=== PATIENT | male | born 1965 | race Caucasian/White ===

== ENCOUNTER 2017-06-09 18:19 | Emergency (ER) | payer OTHER ==
[~2017-06-09] VITALS: Ht 182.9 cm; Wt 117.5 kg
[~2017-06-09 18:19] MED LIST: AMLODIPINE BESY10 MG PO; ASPIRIN325 MG PO; BISOPROLOL-HCT1 EAC2 PO; HYDROCODON-ACE1 EA10 PO; LANTUS100 UNITS/ SUB-Q; LISINOPRIL40 MG PO; MOBIC15 MG PO; PRAVASTATIN SOD40 MG PO; SILDENAFIL20 MG PO; TYLENOL325 MG PO
[2017-06-09] MEDS ORDERED: ZITHROMAX250 MG PO (19:48)
== END 2017-06-09 20:16 | disposition home or self-care (01) ==
LOC: ED 18:19
DX: J02.0 Streptococcal pharyngitis (principal); I10 Essential (primary) hypertension; E11.9 Type 2 diabetes mellitus without complications; Z87.442 Personal history of urinary calculi; Z88.0 Allergy status to penicillin; Z79.899 Other long term (current) drug therapy; Z79.4 Long term (current) use of insulin
CPT/HCPCS: 99283

== ENCOUNTER 2017-06-19 06:55 | Day surgery (SDC) | payer OTHER ==
[~2017-06-19] VITALS: Ht 182.9 cm; Wt 117.5 kg
[~2017-06-19 06:55] MED LIST changes: +ZITHROMAX250 MG PO
[2017-06-19] MEDS ORDERED: NORCO 5-325 TA1 EACH PO (11:03)
--- NOTE | 2017-06-24 07:12 | OR ---
[facility] [address] [place] [place] [address] Signed DATE OF PROCEDURE: 06/19/17 PREOPERATIVE DIAGNOSIS: De Quervain's disease, right wrist. POSTOPERATIVE DIAGNOSIS: De Quervain's disease, right wrist. PROCEDURE: Release of 1st dorsal compartment. ANESTHESIA: General. There were no specimens or complications. TOURNIQUET TIME: About 30 minutes. DESCRIPTION OF PROCEDURE The patient was taken to the operating room. After anesthesia was induced and the airway secured, the patient was positioned, prepped and draped in a routine sterile fashion. A small transverse incision was made at the radial styloid about 2 cm proximal to the palpable tip of the styloid. Skin was divided sharply. Subcutaneous tissue was bluntly spread to avoid damage to dorsal cutaneous branches of the radial nerve. The first dorsal compartment was identified and gently released with the tip of a 15 blade. We were able to elevate both the abductors and the extensor tendons and there was an additional 3rd tendon going t h rough the same jean. At this point, we appeared to have a complete and adequate decompression of the first dorsal compartment. The wound was gently irrigated. The wound edges were infiltrated with 0.25% Marcaine with 1:200,000 Epinephrine. Routine wound closure was accomplished and a sterile dressing applied. The patient was awakened to the recovery room, where he arrived in stable condition. Counts were correct and antibiotic protocols were followed. MD PAUL Xiong/Geo /[id number] cc: Luis Spivey MD Electronically Signed By: SWAPNIL WILEY MD 06/24/17 0712 PATIENT NAME: EMILY DOSHI OPERATIVE REPORT DATE OF : 61 PHYSICIAN: SWAPNIL WILEY MD REPORT #: [id number] REPORT IS CONFIDENTIAL AND NOT TO BE RELEASED WITHOUT AUTHORIZATION
== END 2017-06-19 11:55 | disposition home or self-care (01) ==
LOC: OPS 06:55 → DS 06:55 → OPS 08:15
PROVIDERS: Orthopaedic Surgery
PROC: 0LN50ZZ Release Right Lower Arm and Wrist Tendon, Open Approach (ICD-10-PCS; principal; 2017-06-19 08:15)
DX: M65.4 Radial styloid tenosynovitis [de Quervain] (principal); E11.9 Type 2 diabetes mellitus without complications; I10 Essential (primary) hypertension; J45.909 Unspecified asthma, uncomplicated; Z88.0 Allergy status to penicillin
CPT/HCPCS: 01810; J1100; J1885; J2250; J2405; J2704; J2765; J2795; J3010; J7120

== ENCOUNTER 2017-07-13 09:46 | Emergency (ER) | payer OTHER ==
[~2017-07-13] VITALS: Ht 182.9 cm; Wt 117.5 kg
[~2017-07-13 09:46] MED LIST changes: +NORCO 5-325 TA1 EACH PO
[2017-07-13] MEDS ORDERED: KEFLEX500 MG PO (10:14)
== END 2017-07-13 11:31 | disposition home or self-care (01) ==
LOC: ED 09:46
PROC: 0H9DXZZ Drainage of Right Lower Arm Skin, External Approach (ICD-10-PCS; principal; 2017-07-13)
DX: T81.4XXA Infection following a procedure, initial encounter (principal); L02.413 Cutaneous abscess of right upper limb; E11.9 Type 2 diabetes mellitus without complications; Z88.0 Allergy status to penicillin; Z79.4 Long term (current) use of insulin; Z79.899 Other long term (current) drug therapy; Z87.442 Personal history of urinary calculi; I10 Essential (primary) hypertension
CPT/HCPCS: 10060; 99283

== ENCOUNTER 2018-12-14 03:05 | Emergency (ER) | payer OTHER ==
[~2018-12-14] VITALS: Ht 182.9 cm; Wt 117.5 kg
--- OUTSIDE RECORDS SUMMARY | ~2018-12-14 | XMS | Clinical Summary ---
Demographics + + + | Address | [address] | | | [place] [address] | + + + | Home Phone | | + + + | Preferred Language | Unknown | + + + | Marital Status | | + + + | Druze Affiliation | Unknown | + + + | Race | Unknown | + + + | Ethnic Group | Unknown | + + + Author + + + | Author | [facility] | + + + | Organization | [facility] [employer] [facility] | + + + | Address | Unknown | + + + | Phone | Unavailable | + + + Support + + +---------+ + | Name | Relationship | Address | Phone | + + +---------+ + | Marlon Painter | ECON | Unknown | | + + +---------+ + | Batsheva Doshi | ECON | Unknown | | + + +---------+ + Care Team Providers + +------+ + | Care Saw Grinder Name | Role | Phone | + +------+ + | Ashleigh Diaz PA-C | PP | | + +------+ + Allergies + + + + + + | Active Allergy | Reactions | Severity | Noted | Comments | | | | | Date | | + + + + + + | Ciprofloxacin | Other (See Comments) | Medium | 07/07/20 | Festered and | | | | | 16 | looked like a boil | + + + + + + | Penicillins | Hives | High | 07/07/20 | | | | | | 18 | | + + + + + + Current Medications + + +--------+---------+------+------+-------+ | Prescription | Sig. | Disp. | Refills | Star | End | Statu | | | | | | t | Date | s | | | | | | Date | | | + + +--------+---------+------+------+-------+ | amLODIPine | Take 10 mg by mouth | | | | | Activ | | (NORVASC) 10 MG | daily. | | | | | e | | tablet | | | | | | | + + +--------+---------+------+------+-------+ | insulin lispro, | Inject 10 Units into | | | | | Activ | | human, (HUMALOG) 100 | the skin 3 (three) | | | | | e | | UNIT/ML injection | times daily before | | | | | | | | meals. | | | | | | + + +--------+---------+------+------+-------+ | insulin glargine | Inject into the | | | | | Activ | | (LANTUS) 100 UNIT/ML | skin nightly. | | | | | e | | injection | | | | | | | + + +--------+---------+------+------+-------+ | lisinopril | Take 40 mg by mouth | | | | | Activ | | (ZESTRIL) 40 MG | daily. | | | | | e | | tablet | | | | | | | + + +--------+---------+------+------+-------+ | sildenafil | Take 20 mg by mouth | | | | | Activ | | (REVATIO) 20 MG | 3 (three) times | | | | | e | | tablet | daily. | | | | | | + + +--------+---------+------+------+-------+ | testosterone | Inject 100 mg into | | | | | Activ | | cypionate | the muscle every 14 | | | | | e | | (DEPO-TESTOSTERONE) | (fourteen) days. | | | | | | | 200 MG/ML injection | | | | | | | + + +--------+---------+------+------+-------+ | aspirin 81 MG | Take 1 tablet by | 30 | 11 | 11/0 | 11/0 | Activ | | tablet | mouth daily. | tablet | | 9/20 | 9/20 | e | | | | | | 18 | 19 | | + + +--------+---------+------+------+-------+ | carvedilol (COREG) | Take 1 tablet by | 60 | 11 | 12/0 | 12/0 | Activ | | 12.5 MG tablet | mouth 2 (two) times | tablet | | /20 | 3/20 | e | | | daily with meals. | | | 18 | 19 | | + + +--------+---------+------+------+-------+ | chlorthalidone | Take 1 tablet by | 30 | 11 | 12/0 | 12/0 | Activ | | (HYGROTEN) 25 MG | mouth daily. | tablet | | 3/20 | 3/20 | e | | tablet | | | | 18 | 19 | | + + +--------+---------+------+------+-------+ | atorvastatin | Take 1 tablet by | 30 | 11 | 12/0 | 12/0 | Activ | | (LIPITOR) 80 MG | mouth daily. | tablet | | 3/20 | 3/20 | e | | tablet | | | | 18 | 19 | | + + +--------+---------+------+------+-------+ Active Problems Not on file Family History + + +------+ + | Medical History | Relation | Name | Comments | + + +------+ + | Diabetes type II | Father | | | + + +------+ + | Heart attack | Father | | | + + +------+ + | Hypertension | Father | | | + + +------+ + | Depression | Mother | | | + + +------+ + | Diabetes type II | Mother | | | + + +------+ + | Hypertension | Mother | | | + + +------+ + + +------+ + + | Relation | Name | Status | Comments | + +------+ + + | Father | | | | + +------+ + + | Mother | | | | + +------+ + + Social History + +-------+ +--------+------+ | Tobacco Use | Types | Packs/Day | Years | Date | | | | | Used | | + +-------+ +--------+------+ | Never Smoker | | | | | + +-------+ +--------+------+ + +---+---+---+ | Smokeless Tobacco: | | | | | Current User | | | | + +---+---+---+ + + +---------+ + | Alcohol Use | Drinks/We | oz/Week | Comments | | | ek | | | + + +---------+ + | Yes | | | Once a month | + + +---------+ + + + + | Sex Assigned at | Date Recorded | | | | + + + | Not on file | | + + + Last Filed Vital Signs + + + + | Vital Sign | Reading | Time Taken | + + + + | Blood Pressure | 153/82 | 08/03/2018 11:30 AM PST | + + + + | Pulse | 58 | 08/03/2018 11:30 AM PST | + + + + | Temperature | 36.7 C (98.1 F) | 08/03/2018 11:45 AM PST | + + + + | Respiratory Rate | 9 | 08/03/2018 11:30 AM PST | + + + + | Oxygen Saturation | 94% | 08/03/2018 11:00 AM PST | + + + + | Inhaled Oxygen | - | - | | Concentration | | | + + + + | Weight | 114.4 kg (252 lb 3.3 | 08/03/2018 6:44 AM PST | | | oz) | | + + + + | Height | 182.9 cm (6') | 08/03/2018 6:44 AM PST | + + + + | Body Mass Index | 34.21 | 08/03/2018 6:44 AM PST | + + + + Plan of Treatment + + + + + | Health Maintenance | Due Date | Last Done | Comments | + + + + + | Vaccine: | | | | | Dtap/Tdap/Td (1 - | 2 | | | | Tdap) | | | | + + + + + | Colon Cancer | | | | | Screening | 3 | | | | (Colonoscopy) | | | | + + + + + | Vaccine: Zoster (1 | | | | | of 2) | 3 | | | + + + + + | Vaccine: Influenza | | | | | (Season Ended) | 9 | | | + + + + + Results Not on filefrom Last 3 Months Insurance + +--------+ +------+-------+---------+ | Payer | Benefi | Subscriber | Type | Phone | Address | | | t Plan | ID | | | | | | / | | | | | | | Group | | | | | + +--------+ +------+-------+---------+ | [employer] | [employer] | [id number] | | | | | | WORK | | | | | + +--------+ +------+-------+---------+ + +--------+ +--------+ + + | Guarantor Name | Accoun | Relation to | Date | Phone | Billing Address | | | t Type | Patient | of | | | | | | | | | | + +--------+ +--------+ + + | DICK DOSHI | Person | Self [birth year] Home: | [address] | | [address] | | 1965 | [phone] | [place], [place] | | | [address] | | | [phone] | [phone] | + +--------+ +--------+ + +"
--- OUTSIDE RECORDS SUMMARY | ~2018-12-14 | XMS | Clinical Summary ---
Demographics + + + | Address | [address] | | | [place] [address] | + + + | Home Phone | | + + + | Preferred Language | Unknown | + + + | Marital Status | | + + + | Judaism Affiliation | Unknown | + + + | Race | Unknown | + + + | Ethnic Group | Unknown | + + + Author + + + | Author | [facility] | + + + | Organization | [facility] [employer] [facility] | + + + | Address [...] Team Providers + +------+ + | Care Ship'S Cook Name | Role | Phone | + [...] +------+-------+---------+ | [employer] | [employer] | [id number] | | | | | | WORK [...] | | al/Fam | | [phone] | [phone] | [place], [place] | | | [address] | | | [phone] | [phone] | + +--------+ +--------+ + +"
[~2018-12-14 03:05] MED LIST changes: +KEFLEX500 MG PO
--- OUTSIDE RECORDS SUMMARY | 2018-12-14 03:08 | XMS ---
PreManage Notification: EMILY DOSHI Security [employer] Events No recent Security Events currently on file CRITERIA MET - PDMP CARE PROVIDERS Ashleigh Magana Current PAC PHONE: Unknown Bob has no Care Guidelines for this patient. E.DMisael VISIT COUNT (12 MO.) 2 JIMMIE Meneses TOTAL 2 NOTE: Visits indicate total known visits. 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
== END 2018-12-14 04:04 | disposition home or self-care (01) ==
LOC: ED 03:05
DX: S92.515A Nondisplaced fracture of proximal phalanx of left lesser toe(s), initial encounter for closed fracture (principal); W22.8XXA Striking against or struck by other objects, initial encounter; Y99.0 Civilian activity done for income or pay; I10 Essential (primary) hypertension; E11.9 Type 2 diabetes mellitus without complications; Z88.0 Allergy status to penicillin; Z79.899 Other long term (current) drug therapy; Z79.4 Long term (current) use of insulin
CPT/HCPCS: 73630; 99283-25